=== PATIENT | male | born 1980 | race Caucasian/White ===

== ENCOUNTER 2020-08-20 09:01 | Outpatient (CLI) | payer MEDICAID, SELFPAY ==
--- NOTE | 2020-08-20 09:22 | CT_ITS ---
WS: [id number] CT CHEST, ABDOMEN, AND PELVIS TECHNIQUE: Contrast-enhanced CT of the chest, abdomen, and pelvis with coronal and sagittal reformatt ed images. CLINICAL INFORMATION: HYPONATREMIA, UNINTENTIONAL WEIGHT LOSS, FATIGUE COMPARISON: None. DLP: 2676.[address] scans at [facility] use at least one of these dose optimization techniques: automat ed exposure control; mA and/or kV adjustment per patient size (includes targeted exams where dose is matched to clinical indication); or iterative reconstruction. CT CHEST: Both lungs are well aerated. No acute pulmonary infiltrates. No consolidation or pleural fluid. Normal caliber thoracic aorta. Proximal main pulmonary arteries are normal. No mediastinal or hilar l ymphadenopathy. No axillary lymphadenopathy. No suspicious pulmonary parenchymal opacities. Normal th oracic spine. No axillary lymphadenopathy. CT ABDOMEN AND PELVIS: Hepatomegaly with mild diffuse fatty infiltration. Splenomegaly measuring 15.7 cm [id number]. Liver measures 21.3 cm craniocaudal. Normal GE junction. Normal visualized duodenum. Portal vein and splen ic vein are patent. Adrenal glands are normal. Normal renal parenchymal enhancement. No hydronephrosis. A few small mckayla l cysts. Normal visualized pancreas. Normal caliber abdominal aorta. Shotty periaortic lymph nodes. N o abdominal or pelvic lymphadenopathy. No inguinal lymphadenopathy. Normal sigmoid colon. No evidence of small or large bowel obstruction. Normal lumbar spine. CT/CT chest abd pel w con* IMPRESSION: 1. Hepatomegaly and splenomegaly described above. Diffuse fatty infiltration o f the liver. 2. Otherwise no acute findings in the chest abdomen or pelvis. 3. No adenopathy in the chest abdomen or pelvis. 4. No acute pulmonary infiltrates. Lungs are well aerated. 5. No other significant findings.
[2020-08-20] MEDS: iohexol 300 mg/mL 50 mL Btl PO (10:00)
[2020-08-20] MEDS: iohexol 300 mg/mL 100 mL Btl IV (10:53)
== END 2020-08-20 09:02 | disposition home or self-care (01) ==
LOC: RADWPI 09:03
PROVIDERS: PCP Nurse Practitioner Family; Visit Provider Nurse Practitioner Family
DX: E87.1 Hypo-osmolality and hyponatremia (principal); R53.83 Other fatigue; R63.4 Abnormal weight loss; R16.2 Hepatomegaly with splenomegaly, not elsewhere classified; K76.0 Fatty (change of) liver, not elsewhere classified
CPT/HCPCS: 71260; 74177; Q9967

== ENCOUNTER 2022-01-05 13:18 | Outpatient (CLI) | payer MEDICAID, SELFPAY ==
--- NOTE | 2022-01-05 13:33 | USCV_ITS ---
Aram Pelletier Age: 41 Gender: M : 1980 Exam Date: 01/05/2022 13:45 Ordering Phys: Kenisha Goode NP Technologist: Exam Location: [facility] [place] Indication: cardiomyopathy BP: 135 / 75 HR: 87 Rhythm: Sinus Technical Quality: Adequate MEASUREMENTS (Male / Female) Normal Values 2D ECHO LV Diastolic Diameter PLAX 4.1 cm 4.2 - 5.9 / 3.9 - 5.3 cm LV Systolic Diameter PLAX 3.2 cm IVS Diastolic Thickness 1.2 cm 0.6 - 1.0 / 0.6 - 0.9 cm IVS Systolic Thickness 1.6 cm LVPW Diastolic Thickness 1.3 cm 0.6 - 1.0 / 0.6 - 0.9 cm LVPW Systolic Thickness 1.5 cm LVOT Diameter 2.1 cm LV Ejection Fraction 2D Teich 36.2 % LA Diameter 4.3 cm LA Width 1.8 cm IVC Diameter 2.0 cm M-MODE Aortic Annulus Diameter 4.0 cm LA Ao Ratio MM 1.1 MV E Point Septal Separation 1.2 cm DOPPLER AV Peak Velocity 124.0 cm/s LVOT Peak Velocity 86.0 cm/s AV Area Cont Eq vti 3.1 cm squared AV Area Cont Eq pk 2.4 cm squared MV Area PHT 5.0 cm squared Mitral E to A Ratio 0.8 MV E' Velocity 34.5 cm/s Mitral E to MV E' Ratio 8.0 Mitral E to LV E' Lateral Ratio 5.9 Mitral E to LV E' Septal Ratio 12.9 TR Peak Velocity 189.3 cm/s TR Peak Gradient 14.3 mmHg TV Peak E Velocity 80.0 cm/s Right Atrial Pressure 3.0 mmHg Pulmonary Artery Systolic Pressu 17.3 mmHg PV Peak Velocity 103.0 cm/s FINDINGS Left Ventricle Left ventricle is normal size. LV systolic function is borderline normal with EF of 50 to 55%. Mild hypokinesis of inferoseptal wall. Right Ventricle RV is normal in size. Pacemaker wire is seen. Right Atrium Normal in size. Pacemaker wire is seen. Left Atrium Normal in size Mitral Valve Grossly normal Aortic Valve Normal aortic valve. No significant aortic stenosis or regurgitation. Tricuspid Valve Trace tricuspid regurgitation Pulmonic Valve Not well-visualized Pericardium Normal. Trace pericardial effusion Aorta Normal aortic size. IVC CONCLUSIONS LV systolic function is borderline normal with EF of 50 to 55%. Mild hypokinesis of inferoseptal wall. Pacemaker wire is seen in RA and RV. Trace tricuspid regurgitation. Trace pericardial effusion Compared to prior echocardiogram from 04/07/2016, no significant changes are seen Ronaldo Klein MD (Electronically Signed) Final Date: 18 January 2022 12:41 S
== END 2022-01-05 13:19 | disposition home or self-care (01) ==
LOC: RAD 13:19
PROVIDERS: PCP Nurse Practitioner Family; Visit Provider Nurse Practitioner Family
DX: I10 Essential (primary) hypertension (principal); I42.9 Cardiomyopathy, unspecified; Z95.0 Presence of cardiac pacemaker; I07.1 Rheumatic tricuspid insufficiency; I31.3 Pericardial effusion (noninflammatory)
CPT/HCPCS: 93306

== ENCOUNTER 2023-10-19 08:52 | Emergency (ER) | payer SELFPAY ==
[2023-10-19] VITALS (16 sets, daily range): BP systolic 141–176; BP diastolic 71–107; PULSE 95–109; RESP 10–43; TEMP 36.4; O2SAT 98–100; BMI 27.5
--- NOTE | 2023-10-19 09:04 | CT_ITS ---
WS: [id number] CT HEAD TECHNIQUE: Noncontrast CT of the head obtained from the skullbase to the vertex. CLINICAL INFORMATION: Symptoms of acute stroke COMPARISON: None. DLP: All CT scans at [facility] use at least one of these dose optimization techniques: automated e xposure control; mA and/or kV adjustment per patient size (includes targeted exams where dose is matc hed to clinical indication); or iterative reconstruction. FINDINGS: No evidence of intracranial hemorrhage or mass effect. Ventricular system and basal cisterns are hector nt. No extra-axial fluid collections. No evidence of mass or mass effect. Tiny chronic lacunar infarc t LEFT lateral basal ganglia. Intracranial vascular calcification. Paranasal sinuses and mastoid air cells are well aerated. .Normal visualized soft tissues. CT/CT head thrombolytic [id number] IMPRESSION: 1. No evidence of intracranial hemorrhage or mass effect. 2. Tiny chronic lacunar infarct LEFT lateral basal ganglia. 3. Intracranial vascular calcification. 4. No acute intracranial findings. Notified Kendrick Delgado DO at 10/19/2023 9:36 AM.
--- NOTE | 2023-10-19 09:08 | ED_ITS ---
HPI - Neuro Symptoms/Deficit 2 General: Chief Complaint: Neuro Symptoms/Deficit Stated Complaint: Stroke like Time Seen by Provider: 10/19/23 09:04 Source: patient Mode of arrival: EMS History of Present Illness: 43-year-old male presents to the emergen cy room his last known well was 3 days ago he had an expressive aphasia and a little bit of left facial droop in the field per EMS. Initially when EMS seen him paramedics tell me he was giving no understandable verbal responses but was able to Onset (ago): day(s) (3) NIH stroke score 2 NIHSS: Level Of Consciousness - 1a: 0 Level Of Consciousness Questions - 1b: Both Correct Level Of Consciousness Commands - 1c: Both Correct Best Gaze - 2: Normal Visual Rushing - 3: No Visual Loss Facial Palsy - 4: N ormal Motor Arm Right - 5: No Drift Motor Arm Left - 5: No Drift Motor Leg Right - 6: No Drift Motor Leg Left - 6: No Drift Limb Ataxia - 7: A bsent Sensory - 8: Normal Best Language - 9: Mild/Moderate Aphasia D ysarthia - 10: Severe Dysarthia Extinction And Inattention - 11: 0 Score: Total Score: 3 Course 2 Vital Signs: Vital signs: Vital Signs Temperature 97.6 F 10/19/23 14:13 Pulse Rate 100 10/19/23 14:13 Respiratory Rate 15 10/19/23 14:13 Blood Pressure 142/79 10/19/23 14:13 Pulse Oximetry 100 10/19/23 14:13 Oxygen Delivery Me thod Room Air 10/19/23 08:58 MDM - Neuro Symptoms/Deficit Medical Decision Making Patient anemic thrombocytopenic and his acute renal failure. He is also has some metabolic acidosis. His anion gap is markedly elevated. His lactic acid is only 1.8 his CPK was 1868. Patient will be transferred to [facility] in [place] for further evaluation nephrology services and heme-onc. Lab Data 10/19/23 08:15 10/19/23 08:[address] 10/19/23 09:04 IMPRESSION: 1. No evidence of intracranial hemorrhage or mass effect. 2. Tiny chronic lacunar infarct LEFT lateral basal ganglia. 3. Intracranial vascular calcification. 4. No acute intracranial findings. Notified Kendrick Delgado DO at 10/19/2023 9:36 AM. Abdomen/Pelvis CT 10/19/23 10:31 IMPRESSION: 1. Hepatomegaly and splenomegaly was present in 2020 but has progressed slightly. 2. Bibasilar atelectasis. 3. No hydronephrosis in either kidney. 4. Lopez catheter. 5. No evidence of small or large bowel obstruction. 6. No other suspicious findings. Chest X-Ray 10/19/23 10:32 IMPRESSION: 1. No acute cardiopulmonary finding. Laboratory Results WBC 6.90 10^3/uL (3.29-11.43) 10/19/23 08:15 RBC 3.07 10^6/uL (3.85-5.65) L 10/19/23 08:15 Hgb 8.80 g/dL (11.27-16.99) L 10/19/23 08:15 Hct 24.4 % (37-53) L 10/19/23 08:15 MCV 79.5 fl (82-101) L 10/19/23 08:15 MCH 28.7 pg (27-33) 10/19/23 08:15 MCHC 36.1 g/dL (30-55) 10/19/23 08:15 RDW 12.7 % (12.1-15.1) 10/19/23 08:15 Plt Count 22 10^3/cmm (157-399) L* 10/19/23 08:15 MPV Not Reportable 10/19/23 08:15 Neut % (Auto) 82.5 % 10/19/23 08:15 Lymph % (Auto) 6.4 % 10/19/23 08:15 [place] % (Auto) 9.1 % 10/19/23 08:15 Eos % (Auto) 0.0 % 10/19/23 08:15 Baso % (Auto) 0.3 % 10/19/23 08:15 Neut # (Auto) 5.69 10^3/uL (1.8-7.7) 10/19/23 08:15 Lymph # (Auto) 0.4 10^3/uL (0.8-4.8) L 10/19/23 08:15 [place] # (Auto) 0.6 10^3/uL (0.2-0.9) 10/19/23 08:15 Eos # (Auto) 0.0 10^3/uL (0.0-0.8) 10/19/23 08:15 Baso # (Auto) 0.0 10^3/uL (0.0-0.1) 10/19/23 08:15 Nucleated RBC % (auto) 0 % 10/19/23 08:15 Nucleated RBCs # 0.0 /100WBC 10/19/23 08:15 Haptoglobin 87.0 mg/L (30-200) 10/19/23 08:15 PT 19.90 SECONDS (12.1-14.9) H 10/19/23 08:15 INR 1.63 (0.8-1.2) H 10/19/23 08:15 APTT 38.7 SECONDS (23.9-36.7) H 10/19/23 11:00 Specimen Type Arterial 10/19/23 10:30 Sample Site Radial, left 10/19/23 10:30 ABG pH 7.29 (7.35-7.45) L 10/19/23 10:30 ABG pCO2 18.6 mmHg (35-45) L* 10/19/23 10:30 ABG pO2 88.7 mmHg (80.0-100.0) 10/19/23 10:30 ABG PO2/FiO2 Ratio 0 10/19/23 10:30 ABG HCO3 8.8 mmol/L (22-26) L 10/19/23 10:30 ABG O2 Saturation 97.4 10/19/23 10:30 ABG Base Excess -16.1 mmol/L (-2.0-2.0) L 10/19/23 10:30 Luther Test Pos 10/19/23 10:30 A-a O2 Gradient 4.8 mmHg (5-10) L 10/19/23 10:30 Hematocrit 24.7 % (42-52) L 10/19/23 10:30 Hgb O2 Saturation 95.7 % (95-100) 10/19/23 10:30 Carboxyhemoglobin 0.9 %THgb (0.4-20.1) 10/19/23 10:30 Methemoglobin 0.8 % (0.4-1.5) 10/19/23 10:30 Total Hemoglobin 8.1 g/dL (14-18) L 10/19/23 10:30 Sodium 125.0 mmol/L (131-143) L 10/19/23 10:30 Potassium 4.4 mmol/L (3.5-5.0) 10/19/23 10:30 Glucose 180.0 mg/dL (70-115) H 10/19/23 10:30 Ionized Calcium 0.9 mmol/L (1.1-1.4) L 10/19/23 10:30 O2 Delivery Device Room air 10/19/23 10:30 FiO2 21.0 % 10/19/23 10:30 Pleater ID Cak 10/19/23 10:30 Sodium 125 mmol/L (136-145) L 10/19/23 08:15 Potassium 4.8 mmol/L (3.5-5.1) 10/19/23 08:15 Chloride 84 mmol/L (98-107) L 10/19/23 08:15 Carbon Dioxide 10 mmol/L (22-29) L 10/19/23 08:15 Anion Gap 35.8 (5-19) H 10/19/23 08:15 BUN 227 mg/dL (6-20) H* 10/19/23 08:15 Creatinine 21.4 mg/dL (0.7-1.2) H* 10/19/23 08:15 GFR Calculation 2.4 mL/min (90-130) L 10/19/23 08:15 Glucose 167 mg/dL (65-115) H 10/19/23 08:15 POC Glucose 196 mg/dL (70-110) H 10/19/23 09:31 Calculated Osmolality 340 mOsm/kg (285-295) H 10/19/23 08:15 Lactic Acid 1.8 mmol/L (0.5-2.2) 10/19/23 08:15 Calcium 6.9 mg/dL (8.5-10.5) L 10/19/23 08:15 Magnesium 3.1 mg/dL (1.7-2.3) H 10/19/23 08:15 Total Bilirubin 1.0 mg/dL (0.15-1.2) 10/19/23 08:15 AST 144 U/L (0-40) H 10/19/23 08:15 ALT 143 U/L (0-41) H 10/19/23 08:15 Alkaline Phosphatase 139 U/L (40-130) H 10/19/23 08:15 Ammonia 16 umol/L (16-60) 10/19/23 11:00 Lactate Dehydrogenase 493 U/L (135-225) H 10/19/23 08:15 Creatine Kinase 1868 U/L (39-308) H* 10/19/23 08:15 Total Protein 6.6 g/dL (6.6-8.7) 10/19/23 08:15 Albumin 3.1 g/dL (3.5-5.2) L 10/19/23 08:15 Globulin 3.5 g/dL (1.3-4.6) 10/19/23 08:15 Lipase 198 U/L (13-60) H 10/19/23 08:15 Urine Color Yellow (Yellow) 10/19/23 11:11 Urine Appearance Slightly cloudy (CLEAR) 10/19/23 11:11 Urine pH 5 (5-7) 10/19/23 11:11 Ur Specific [place] 1.015 (1.005-1.030) 10/19/23 11:11 Urine Protein 3+ (Negative) H 10/19/23 11:11 Urine Glucose (UA) 1+ (Normal) H 10/19/23 11:11 Urine Ketones Negative (Negative) 10/19/23 11:11 Urine Blood 3+ (Negative) H 10/19/23 11:11 Urine Nitrate Negative (Negative) 10/19/23 11:11 Urine Bilirubin Neg (Negative) 10/19/23 11:11 Urine Urobilinogen Norm mg/dL (Negative) 10/19/23 11:11 Ur Leukocyte Esterase Negative (Negative) 10/19/23 11:11 Urine RBC 5-10 /hpf (0-2) H 10/19/23 11:11 Urine WBC None /hpf (0-5) 10/19/23 11:11 Ur Squamous Epith Cells None /hpf (0-5) 10/19/23 11:11 Amorphous Sediment Not Reportable 10/19/23 11:11 Urine Bacteria 2+ /hpf (NONE) H 10/19/23 11:11 Urine Mucus Trace /hpf 10/19/23 11:11 Salicylates < 0.3 mg/dL (3-10) L 10/19/23 11:00 Urine Opiates Screen Negative ng/mL (Negative) 10/19/23 11:11 Acetaminophen < 5.0 ug/mL (10-30) L 10/19/23 11:00 Ur Barbiturates Screen Negative ng/mL (Negative) 10/19/23 11:11 Ur Phencyclidine Scrn Negative ng/mL (Negative) 10/19/23 11:11 Ur Amphetamines Screen Negative ng/mL (Negative) 10/19/23 11:11 U Benzodiazepines Scrn Negative ng/mL (Negative) 10/19/23 11:11 Urine Cocaine Screen Negative ng/mL (Negative) 10/19/23 11:11 U Marijuana (THC) Screen Negative ng/mL (Negative) 10/19/23 11:11 HIV 1&2 Ab & HIV 1 Ag Non-reactive (Non-Reactiv) 10/19/23 11:00 HIV 1&2 Antibody Non-reactive (Non-Reactiv) 10/19/23 11:00 All radiology interpretation(s) finalized by discharge Discharge Plan Discharge Patient Disposition: er Intermediate Care Fac Clinical Impression: Acute renal failure (ARF), Thrombocytopenia, Anemia, Metabolic acidosis, Encephalopathy Condition: Stable Prescriptions: No Action allopurinol 100 mg tablet 200 mg PO BID amlodipine 5 mg tablet 5 mg PO DAILY aspirin [Adult Low Dose Aspirin] 81 mg tablet,delayed release (DR/EC) 81 mg PO DAILY clonidine HCl 0.2 mg tablet 0.2 mg PO BID furosemide 40 mg tablet 40 mg PO DAILY gabapentin 300 mg capsule 300 mg PO TID insulin lispro [Humalog U-100 Insulin] 100 unit/mL solution 25 unit SUBCUT .BIDAC insulin glargine [Lantus U-100 Insulin] 100 unit/mL solution 10 unit SUBCUT .HS lisinopril 5 mg tablet 5 mg PO DAILY metformin 500 mg tablet 1,000 mg PO BID metoprolol succinate 100 mg tablet extended release 24 hr 100 mg PO BID naproxen 500 mg tablet 500 mg PO BID PRN (Reason: INFLAMMATION OR PAIN) Referrals: Kenisha Goode NP [Referring] - Coding Level of Care Code ED Industrial Refrigeration Mechanic for Antwan Stallworth
[2023-10-19 09:23] LABS: Basophils % 0.3 %; Hematocrit 24.4 % (37-53); Lymphocytes # 0.4 10^3/uL (0.8-4.8); Lymphocytes % 6.4 %; Mean Corpuscular HGB Conc 36.1 g/dL (30-55); Mean Corpuscular Hemoglobin 28.7 pg (27-33); Mean Corpuscular Volume 79.5 fl (82-101); Monocytes # 0.6 10^3/uL (0.2-0.9); Monocytes % 9.1 %; Neutrophils # 5.69 10^3/uL (1.8-7.7); Neutrophils % 82.5 %; Nucleated Red Blood Cells % 0 %; Red Blood Count 3.07 10^6/uL (3.85-5.65); Red Cell Distribution Width 12.7 % (12.1-15.1)
--- NOTE | 2023-10-19 09:25 | ECG_ITS ---
[facility] Test Date: 2023-10-19 Pat Name: Aram Pelletier Department: Room: Gender: Male Manager Contracting: : 1980 Requested By: Kendrick Luque Order Number: [id number] Ella MD: Ronaldo Klein M.D. Measurements Intervals [place] Rate: 100 P: 56 MD: 156 QRS: 73 QRSD: 114 T: 90 QT: 392 QTc: 506 Interpretive Statements SINUS TACHYCARDIA WITH OCCASIONAL SUPRAVENTRICULAR PREMATURE COMPLEXES PROBABLE LATERAL MYOCARDIAL INFARCTION , OF INDETERMINATE AGE [35 ms Q WAVE IN I/aVL/V5/V6] No previous ECG available for comparison Electronically Signed On 10-19-2023 13:54:58 CDT by Ronaldo Klein M.D. [id number]
[2023-10-19 09:31] LABS: INR 1.63 (0.8-1.2)
[2023-10-19 09:32] LABS: Partial Thromboplastin Time 38.9 SECONDS (23.9-36.7)
[2023-10-19 09:34] LABS: Glucose Point of Care 196 mg/dL (70-110)
[2023-10-19 09:35] LABS: Alanine Aminotransferase 143 U/L (0-41); Albumin Level 3.1 g/dL (3.5-5.2); Alkaline Phosphatase 139 U/L (40-130); Anion Gap 35.8 (5-19); Aspartate Amino Transferase 144 U/L (0-40); Calcium 6.9 mg/dL (8.5-10.5); Carbon Dioxide 10 mmol/L (22-29); Chloride 84 mmol/L (98-107); Creatinine Clr Calc Pharmacy 5.6459; Globulin 3.5 g/dL (1.3-4.6); Glomerular Filtration Rate 2.4 mL/min (90-130); Glucose 167 mg/dL (65-115); Potassium 4.8 mmol/L (3.5-5.1); Sodium 125 mmol/L (136-145); Total Protein 6.6 g/dL (6.6-8.7)
--- NOTE | 2023-10-19 09:36 | PC.PHAR ---
PT HAS ONLY 2 MEDICATIONS: CLONIDINE HCL 0.2 MG TWICE DAILY FILLED 04/11/23, AND METFORMIN 500MG TWICE DAILY FILLED 06/17/22. PHONED ALL LOCAL PHARMACIES AND [facility]. NO OTHER CURRENT MEDICATIONS FOUND. PREVIOUS MEDICATIONS NOT REMOVED FROM PT CHART- LAST VERIFIED 04/19/22.
[2023-10-19 10:01] LABS: Blood Urea Nitrogen 227 mg/dL (6-20)
[2023-10-19 10:02] LABS: Osmolality Calculated 340 mOsm/kg (285-295)
[2023-10-19 10:04] LABS: Platelet Count 22 10^3/cmm (157-399)
[2023-10-19 10:06] LABS: Slide Review Slide Review Perform
--- NOTE | 2023-10-19 10:31 | CT_ITS ---
WS: [id number] CT ABDOMEN PELVIS TECHNIQUE: Noncontrast CT of the abdomen and pelvis with coronal and sagittal reformatted images. CLINICAL INFORMATION: Abdominal pain COMPARISON: 2020 DLP: 820.[address] scans at [facility] use at least one of these dose optimization techniques: automated e xposure control; mA and/or kV adjustment per patient size (includes targeted exams where dose is matc hed to clinical indication); or iterative reconstruction. FINDINGS: Hepatomegaly and splenomegaly was present in 2020 but has progressed slightly. Bibasilar atelectasis. Small esophageal hiatal hernia. Adrenal glands are normal. No hydronephrosis in either kidney. Lopez catheter. Noncontrast pancreas appears grossly normal. Normal caliber abdominal aorta. Vascular calcification. Normal sigmoid colon. Normal appendix. No evidence of high-grade small or lar ge bowel obstruction. CT/CT abdomen pelvis wo con [id number] IMPRESSION: 1. Hepatomegaly and splenomegaly was present in 2020 but has progressed slight ly. 2. Bibasilar atelectasis. 3. No hydronephrosis in either kidney. 4. Lopez catheter. 5. No evidence of small or large bowel obstruction. 6. No other suspicious findings.
--- NOTE | 2023-10-19 10:32 | XR_ITS ---
WS: [id number] Exam: XR chest 1V portable [id number] Date/Time of Exam: 10/19/2023 10:33 AM Reason For Exam: dyspnea/cough No previous exams. The lungs are clear and fully inflated. Cardiomediastinal silhouette is unremarkable for AP portable technique. Cardiac pacer leads superimposes the chest. Bony structures are intact. XR/XR chest 1V portable [id number] IMPRESSION: 1. No acute cardiopulmonary finding.
[2023-10-19 10:42] LABS: ABG PH Result 7.29 (7.35-7.45); Alveolar-Arterial Oxygen Gradi 4.8 mmHg (5-10); Arterial Blood Gas Hematocrit 24.7 % (42-52); Base Excess ABG -16.1 mmol/L (-2.0-2.0); Blood Gas Allen Test Pos; Blood Gas Operator Identificat CAK; Blood Gas Sample Site Radial, left; Blood Gas Sample Type Arterial; Carboxyhemoglobin 0.9 %THgb (0.4-20.1); HCO3 ABG 8.8 mmol/L (22-26); HGB O2 Sat 95.7 % (95-100); Ionized Calcium Level - ABG 0.9 mmol/L (1.1-1.4); Methemoglobin 0.8 % (0.4-1.5); Oxygen Device ROOM AIR; Oxygen Saturation ABG 97.4; PO2 ABG 88.7 mmHg (80.0-100.0); PO2 FiO2 Ratio Arterial Blood 0; Potassium Level - ABG 4.4 mmol/L (3.5-5.0); Total Hemoglobin 8.1 g/dL (14-18)
[2023-10-19 10:44] LABS: ABG PCO2 18.6 mmHg (35-45)
[2023-10-19] MEDS: sodium chloride 0.9% 1,000 ML 999 ML IV ×2 (10:44→12:52)
[2023-10-19] MEDS: pantoprazole 40 mg SDV 80 MG IVP (10:45)
[2023-10-19 11:12] LABS: Lactic Sepsis W/Reflex 1.8 mmol/L (0.5-2.2)
[2023-10-19 11:13] LABS: Lactate Dehydrogenase 493 U/L (135-225); Lipase 198 U/L (13-60); Magnesium 3.1 mg/dL (1.7-2.3)
[2023-10-19 11:19] LABS: Creatine Phosphokinase 1868 U/L (39-308)
[2023-10-19 11:27] LABS: Partial Thromboplastin Time 38.7 SECONDS (23.9-36.7)
[2023-10-19 11:31] LABS: Add Urine Microscopic? YES; Bilirubin Urine Neg (Negative); Blood Urine 3+ (Negative); Glucose Urine UA 1+ (Normal); Ketones Urine Negative (Negative); Leukocyte Esterase Urine Negative (Negative); Nitrate Urine Negative (Negative); Protein Urine 3+ (Negative); Specific Gravity, Urine 1.015 (1.005-1.030); Urine Appearance Slightly Cloudy (CLEAR); Urine Color Yellow (Yellow); Urobilinogen Urine Norm (Negative); pH Urine 5 (5-7)
[2023-10-19 11:31] LABS: Acetaminophen < 5.0 ug/mL (10-30); Salicylate < 0.3 mg/dL (3-10)
[2023-10-19 11:32] LABS: Ammonia 16 umol/L (16-60)
[2023-10-19 11:34] LABS: Amphetamines Screen Urine Negative (Negative); Barbiturates Screen Urine Negative (Negative); Benzodiazepines Screen Urine Negative (Negative); Cocaine Screen Urine Negative (Negative); Opiate Screen Urine Negative (Negative); PCP Screen Urine Negative (Negative); THC Screen Urine Negative (Negative)
[2023-10-19 11:39] LABS: Add Urine Culture? Yes; Bacteria Urine 2+ /hpf; Mucus Urine TRACE /hpf
[2023-10-19 11:44] LABS: HIV 1 & 2 Antibody Non-Reactive (Non-Reactiv); HIV 1 & 2 Antigen Non-Reactive (Non-Reactiv)
== END 2023-10-19 14:14 | disposition intermediate care facility (04) ==
PROVIDERS: Emergency Provider Family Medicine
DX: N17.9 Acute kidney failure, unspecified (principal); D69.6 Thrombocytopenia, unspecified; D64.9 Anemia, unspecified; E87.20 Acidosis, unspecified; G93.40 Encephalopathy, unspecified; Z79.82 Long term (current) use of aspirin; Z79.84 Long term (current) use of oral hypoglycemic drugs; Z79.4 Long term (current) use of insulin
CPT/HCPCS: 36415; 36416; 36600; 70450; 71045; 74176; 80051; 80053; 80306; 80307; 81001; 82140; 82330; 82550; 82805; 82962; 83010; 83605; 83615; 83690; 83735; 85025; 85610; 85730; 87040; 87077; 87086; 87150; 87186; 87205; 87806; 93005; 96361; 96374; 99285; C9113; J7030